=== PATIENT | male | born 1945 | race Caucasian/White ===

== ENCOUNTER → 2021-12-07 09:40 | Outpatient (BNVA) | payer MEDICARE, OTHER, SELFPAY | PROVIDERS: Referring Provider Family Medicine; Visit Provider Orthopaedic Surgery | DX: M17.0 Bilateral primary osteoarthritis of knee (principal); M25.569 Pain in unspecified knee | CPT/HCPCS: 20610; 73560; 73565; 99203; J0702; J3490 ==

== ENCOUNTER 2025-01-12 05:28 | Emergency (ER) | payer MEDICARE, OTHER, SELFPAY ==
[2025-01-12 05:34] VITALS: BP 146/66; PULSE 51; RESP 18; TEMP 36.6; O2SAT 96; BMI 26.2
[2025-01-12 05:49] LABS: Basophils % 0.7 %; Eosinophils # 0.2 10^3/uL (0.0-0.8); Hematocrit 32.6 % (37-53); Lymphocytes # 1.5 10^3/uL (0.8-4.8); Lymphocytes % 34.9 %; Mean Corpuscular HGB Conc 32.5 g/dL (30-55); Mean Corpuscular Hemoglobin 31.3 pg (27-33); Mean Corpuscular Volume 96.2 fl (82-101); Mean Platelet Volume 10.1 fL (7.4-10.4); Monocytes # 0.4 10^3/uL (0.2-0.9); Monocytes % 9.9 %; Neutrophils # 2.08 10^3/uL (1.8-7.7); Nucleated Red Blood Cells % 0 %; Platelet Count 149 10^3/cmm (157-399); Red Blood Count 3.39 10^6/uL (3.85-5.65); Red Cell Distribution Width 12.4 % (12.1-15.1); White Blood Count 4.24 10^3/uL (3.29-11.43)
--- NOTE | 2025-01-12 05:56 | USR_ITS ---
PROCEDURE INFORMATION: Exam: US Duplex Left Lower Extremity Veins, Limited Exam date and time: 01/12/2025 6:13 AM Age: 79 years old Clinical indication: Swelling (edema) of limb; Lower extremity, left; Prior surgery; Surgery date: 1-6 months; Surgery type: Left knee replacement Dec 10 2024; Additional info: Leg swelling TECHNIQUE: Imaging protocol: Real-time duplex ultrasound of the left extremity with 2-D padron scale, color Doppler flow and spectral waveform analysis including responses to compression and other maneuvers (when performed) with image documentation. Limited exam focused on the left lower extremity veins. COMPARISON: CR XR knees AP WB w BI lmt ORTH 12/07/2021 10:28 AM FINDINGS: Left deep veins: Unremarkable. The common femoral, femoral, proximal profunda femoral and popliteal veins are patent without thrombus. Normal Doppler waveforms. Normal compressibility and/or augmentation response. Superficial veins: Greater saphenous vein at the saphenofemoral junction is patent without thrombus. Soft tissues: Unremarkable. US/CV venous duplex [facility] [id number] IMPRESSION: No evidence of deep vein thrombosis left lower extremity.
--- NOTE | 2025-01-12 06:14 | ED_ITS ---
HPI - Extremity Problem 2 General: Chief complaint: Extremity Problem,Nontraumatic Stated complaint: LEG PAIN Time Seen by Provider: 01/12/25 05:49 Source: patient Mode of arrival: ambulatory Limitations: no limitations History of Present Illness: 79-year-old male is here from [facility]. He had had a recent total knee replacement to the left knee. States since then he has been having pain throughout his leg along with some leg swelling. States the pains been burning pains rated a 6 out of 10 currently denies any fevers denies any new injuries. Associated symptoms: Deny chest pain, fever(s) or rash Related Data Home Medications ?Medication ?Instructions ?Recorded ?Confirmed No Known Home Medications 12/07/21 05/0 10/26 Allergies Allergy/AdvReac Type Severity Reaction Status Date / Time No Known Allergies Allergy Verified 12/07/21 10:19 Review of Systems 2 Const: Denies: fever(s), chills, body aches or change in appetite ENMT: Denies: throat pain or dental pain Card: Denies: chest pain Resp: Denies: dyspnea GI: Denies: abdominal pain, nausea, vomiting or diarrhea Musc: Reports: extremity pain and extremity swelling; Denies: neck pain or back pain Skin/Breast: Denies: rash Neuro: Denies: headache(s) PFSH ED 2 PFSH: Social History Smoking and tobacco/nicotine status: never used tobacco/nicotine Physical Exam 2 Const: COMMON NORMALS: no acute distress, patient oriented x3 and healthy appearing HENMT: COMMON NORMALS: normocephalic and atraumatic HEAD & SCALP: n ormocephalic and atraumatic Eye: COMMON NORMALS: conjunctivae normal CONJUNCTIVA: Yes conjunctivae normal Neck/C-Spine: COMMON NORMALS: full ROM and supple Chest: COMMONS NORMALS: normal inspection of the chest Resp: COMMON NORMALS: normal respiratory effort, No retractions, No use of accessory muscles and clear to auscultation bilaterally AUSCULTATION: clear to auscultation bilaterally Cardio: COMMON NORMALS: regular rate, regular rhythm and No murmurs present (Cardio) RATE: regular rate RHYTHM: regular rhythm Extremity: NARRATIVE EXTREMITY EXAM: Swelling noted to left lower leg no redness incisions clean dry intact distal pulses intact Neuro: COMMON NORMALS: patient oriented x3, moves all extremities and no focal motor deficits Psych: COMMON NORMALS: mental status grossly normal, Normal thought process present and cooperative THOUGHT PROCESS: Normal thought process present Skin: COMMON NORMALS: no rashes or lesions noted and no wounds GENERAL SKIN EXAM: no rashes or lesions noted Course 2 Vital Signs: Vital signs: Vital Signs Temperature 97.8 F 01/12/25 05:34 Pulse Rate 52 L 01/12/25 06:17 Respiratory Rate 16 01/12/25 06:17 Blood Pressure 146/66 01/12/25 06:17 Pulse Oximetry 94 01/12/25 06:17 Oxygen Delivery Me thod Nasal Cannula 01/12/25 06:17 Oxygen Flow Rate 2 01/12/25 06:17 MDM - Extremity (Nontraumatic) Medical Decision Making Patient presents for left leg pain blood work ultrasound here negative no signs of infection no DVT he stable for discharge back to [facility] Medical Records I reviewed the patient's medical records. Lab Data I reviewed the patient's lab results. 01/12/25 05:20 01/12/25 05:20 Radiology Impressions Venous Duplex 01/12/25 05:56 IMPRESSION: No evidence of deep vein thrombosis left lower extremity. Laboratory Results WBC 4.24 10^3/uL (3.29-11.43) 01/12/25 05:20 RBC 3.39 10^6/uL (3.85-5.65) L 01/12/25 05:20 Hgb 10.60 g/dL (11.27-16.99) L 01/12/25 05:20 Hct 32.6 % (37-53) L 01/12/25 05:20 MCV 96.2 fl (82-101) 01/12/25 05:20 MCH 31.3 pg (27-33) 01/12/25 05:20 MCHC 32.5 g/dL (30-55) 01/12/25 05:20 RDW 12.4 % (12.1-15.1) 01/12/25 05:20 Plt Count 149 10^3/cmm (157-399) L 01/12/25 05:20 MPV 10.1 fL (7.4-10.4) 01/12/25 05:20 Neut % (Auto) 49.0 % 01/12/25 05:20 Lymph % (Auto) 34.9 % 01/12/25 05:20 Mckenzie % (Auto) 9.9 % 01/12/25 05:20 Eos % (Auto) 5.0 % 01/12/25 05:20 Baso % (Auto) 0.7 % 01/12/25 05:20 Neut # (Auto) 2.08 10^3/uL (1.8-7.7) 01/12/25 05:20 Lymph # (Auto) 1.5 10^3/uL (0.8-4.8) 01/12/25 05:20 Mckenzie # (Auto) 0.4 10^3/uL (0.2-0.9) 01/12/25 05:20 Eos # (Auto) 0.2 10^3/uL (0.0-0.8) 01/12/25 05:20 Baso # (Auto) 0.0 10^3/uL (0.0-0.1) 01/12/25 05:20 Nucleated RBC % (auto) 0 % 01/12/25 05:20 Nucleated RBCs # 0.0 /100WBC 01/12/25 05:20 Sodium 141 mmol/L (136-145) 01/12/25 05:20 Potassium 3.9 mmol/L (3.5-5.1) 01/12/25 05:20 Chloride 105 mmol/L (98-107) 01/12/25 05:20 Carbon Dioxide 27 mmol/L (22-29) 01/12/25 05:20 Anion Gap 12.9 (5-19) 01/12/25 05:20 BUN 15 mg/dL (8-23) 01/12/25 05:20 Creatinine 0.7 mg/dL (0.7-1.2) 01/12/25 05:20 GFR Calculation Not Reportable 01/12/25 05:20 Glucose 117 mg/dL (65-115) H 01/12/25 05:20 Calculated Osmolality 294 mOsm/kg (285-295) 01/12/25 05:20 Calcium 8.9 mg/dL (8.5-10.5) 01/12/25 05:20 Total Bilirubin 0.7 mg/dL (0.15-1.2) 01/12/25 05:20 AST 17 U/L (0-40) 01/12/25 05:20 ALT < 5 U/L (0-41) 01/12/25 05:20 Alkaline Phosphatase 122 U/L (40-130) 01/12/25 05:20 NT-Pro-B Natriuret Pep 381 pg/mL (0-450) 01/12/25 05:20 Total Protein 5.7 g/dL (6.6-8.7) L 01/12/25 05:20 Albumin 3.5 g/dL (3.5-5.2) 01/12/25 05:20 Globulin 2.2 g/dL (1.3-4.6) 01/12/25 05:20 All radiology interpretation(s) finalized by discharge Discharge Plan Discharge Patient Disposition: Home Clinical Impression: Leg pain, left Condition: Stable Prescriptions: No Action Gel-One 30 mg/3 mL syringe 30 mg intra-articular ONCE Qty: 3 0RF No Known Home Medications Discharge Orders: Discharge ED (Routine); Ordered 01/12/25 Ordered By: Hi Atwood Referrals: Benja David MD [Primary Care Provider] Discharge Diet: Advance as tolerated Discharge Activity: Resume usual activity Patient Instructions: Leg Pain (ED) Print Language: Ukrainian Coding Level of Care Code ED Search Engine Optimization Consultant for Carolin Zelaya
[2025-01-12 06:17] VITALS: BP 146/66; PULSE 52; RESP 16; O2SAT 94
[2025-01-12 06:26] LABS: Alanine Aminotransferase < 5 U/L (0-41); Albumin Level 3.5 g/dL (3.5-5.2); Alkaline Phosphatase 122 U/L (40-130); Anion Gap 12.9 (5-19); Aspartate Amino Transferase 17 U/L (0-40); Blood Urea Nitrogen 15 mg/dL (8-23); Calcium 8.9 mg/dL (8.5-10.5); Carbon Dioxide 27 mmol/L (22-29); Chloride 105 mmol/L (98-107); Creatinine Clr Calc Pharmacy 92.9281; Globulin 2.2 g/dL (1.3-4.6); Glucose 117 mg/dL (65-115); NT Pro B Type Natriuretic Pept 381 pg/mL (0-450); Osmolality Calculated 294 mOsm/kg (285-295); Potassium 3.9 mmol/L (3.5-5.1); Sodium 141 mmol/L (136-145); Total Bilirubin 0.7 mg/dL (0.15-1.2); Total Protein 5.7 g/dL (6.6-8.7)
--- NOTE | 2025-01-12 07:32 | PC.NURSE ---
PT FAMILY AT BEDSIDE AND INFORMED PT WAS UP FOR DISCHARGE. PT FAMILY STATES THAT PT WILL NEED AN AMBULANCE RIDE BACK HOME. THIS NURSE ATTEMPTED TO CALL REPORT TO [facility] WITH NO ANSWER.
[2025-01-12 08:15] VITALS: BP 150/73; PULSE 65; O2SAT 98
== END 2025-01-12 08:15 | disposition home or self-care (01) ==
PROVIDERS: Student in an Organized Health Care Education/Training Program; Emergency Provider Emergency Medicine; PCP Family Medicine
DX: M79.605 Pain in left leg (principal); Z96.652 Presence of left artificial knee joint
CPT/HCPCS: 80053; 83880; 85025; 93971; 99284

== ENCOUNTER 2025-04-26 09:23 | Emergency (ER) | payer MEDICARE, OTHER, SELFPAY ==
--- NOTE | 2025-04-26 09:26 | CTR_ITS ---
PROCEDURE INFORMATION: Exam: CT Abdomen And Pelvis With Contrast Exam date and time: 04/26/2025 9:38 AM Age: 79 years old Clinical indication: Abdominal pain; Localized; Upper; Additional info: Abd pain TECHNIQUE: Imaging protocol: Computed tomography of the abdomen and pelvis with contrast. Total images: 2 Radiation optimization: All CT scans at this facility use at least one of these dose optimization techniques: automated exposure control; mA and/or kV adjustment per patient size (includes targeted exams where dose is matched to clinical indication); or iterative reconstruction. Contrast material: OMNI 350; Contrast volume: 100 ml; Contrast route: INTRAVENOUS (IV); COMPARISON: No relevant prior studies available. RADIATION DOSE METRICS: Total DLP (mGy-cm): 1068.06 FINDINGS: Lungs: Compressive atelectasis of the lungs. Pleural spaces: Small bilateral pleural effusions are present. Liver: Normal. No mass. Gallbladder and biliary ducts: Prior cholecystectomy noted. Pancreas: Normal. No ductal dilation. Spleen: Normal. No splenomegaly. Adrenal glands: Normal. No mass. Kidneys and ureters: 11.6 cm largest cyst noted in kidneys that have multiple simple renal cysts. No further evaluation required. Stomach and bowel: Moderate stool burden. Appendix: No evidence of appendicitis. Intraperitoneal space: Unremarkable. No free air. No significant fluid collection. Vasculature: Incidental venous phlebolith noted. Lymph nodes: Unremarkable. No enlarged lymph nodes. Urinary bladder: Unremarkable as visualized. Reproductive: Prostatomegaly noted. Extraperitoneal space: Mild edema seen in lower mesentery and presacral space nonspecific. Bones/joints: Multilevel degenerative disc disease is noted with vacuum phenomenon. Osteophytes are noted extending from the vertebrae. No acute spinal pathology is detected. Soft tissues: Unremarkable. Other findings: Mild atherosclerotic disease burden is evident. CT/CT abdomen pelvis w con* [id number] IMPRESSION: 1. Small bilateral pleural effusions with compressive atelectasis. 2. Moderate stool burden. 3. Mild edema seen in lower mesentery and presacral space nonspecific. COMMENTS: Consistent with the [employer]'s Incidental Findings Committee white paper (J Am Sabrina Radiol 2018): Any incidental renal lesion less than 1 cm or classified as too small to characterize, or any incidental cystic renal lesion characterized as simple-appearing, is likely benign. No follow-up imaging is recommended for these lesions per consensus recommendations based on imaging criteria.
[2025-04-26 09:28] VITALS: BP 173/82; PULSE 79; RESP 18; TEMP 36.6; O2SAT 92; BMI 27.2
--- OUTSIDE RECORDS SUMMARY | 2025-04-26 09:28 | XMS_ITS | Encounter Summary ---
Author Organization [facility] Address [address] [place] [address] Care Team Providers Care Chief Fundraising Officer Name Role Phone Humza Arana MD Primary Care Provider [phone] Encounter Details Date Type Department Care Team (Latest Contact Info) Description 12/30/2009 Ancillary Orders [facility] Cardiology- [place] [address] [place] [address] Corky Andrea MD [address] [facility] [address] [place] [address] DM (Diabetes Mellitus) ([facility]); Abnormal Cardiovascular Stress Test Social History Tobacco Use Types Packs/Day Years Used Date Smoking Tobacco: Never Alcohol Use Standard Drinks/Week Comments No 0 (1 standard drink = 0.6 oz pur e alcohol) Sex and Gender Information Value Date Recorded Sex Assigned at Not on file Legal Sex Male 5:31 AM DIRECTOR OF TAX SERVICES Gender Identity Not on file Sexual Orientation Not on file documented as of this encounter Plan of Treatment Not on file documented as of this encounter Results * ECHO PRE TEST (12/30/2009 1:40 PM CDT) Narrative [facility] - 12/30/2009 1:40 PM CDT Order information only. See the Stress Echo Report for result. Procedure Note Rossi Edge, RT - 12/30/2009 Order information only. See the Stress Echo Report for result. us Corky Andrea MD US ORDERABLES Final Result [facility] documented in this encounter Visit Diagnoses Diagnosis DM (diabetes mellitus) (CMS/[facility]) Type II or unspecified type diabetes mellitus without mention of complication, not stated as uncontrolled Abnormal cardiovascular stress test Other nonspecific abnormal cardiovascular system function study DM (diabetes mellitus) (CMS/HCC) Type II or unspecified type diabetes mellitus without mention of complication, not stated as uncontrolled Abnormal cardiovascular stress test Other nonspecific abnormal cardiovascular system function study documented in this encounter Care Teams Chief Fundraising Officer Relationship Specialty Start Date End Date Humza Arana MD [address] [place] [address] [address] [place] [address] PCP - General Family Practice 08/06/15 documented as of this encounter
--- OUTSIDE RECORDS SUMMARY | 2025-04-26 09:28 | XMS_ITS | Encounter Summary ---
Author Organization [facility] Address [address] [place] [address] Care Team Providers Care Pharmacy Sales Representative Name Role Phone Humza Arana MD Primary Care Provider [phone] Reason for Referral * Outpatient Services (Routine) - Closed Specialty Diagnoses / Procedures Referred By Contlelo t Referred To Contact Diagnoses Renal cyst Procedures US GUIDED ASPIRATION Rhaul Carter MD [address] [place] [phone] Phone: tel: fax: Referral ID Status Reason Start Date Expiration Date Visits Re quested Visits Authorized [id number] Closed 07/22/2011 07/21/2012 1 1 FORESTER Encounter Details Date Type Department Care Team (Late st Contact Info) Description 07/22/2011 Ancillary Orders [facility] Ultrasound [address] [place] [address] Rahul Carter MD [address] [place] [phone] Renal cyst Social History Tobacco Use Types Packs/Day Years Used Date Smoking Tobacco: Never Smokeless Tobacco: Never Alcohol Use Standard Drinks/Week Comments No 0 (1 standard drink = 0.6 oz pur e alcohol) Sex and Gender Information Value Date Recorded Sex Assigned at Not on file Legal Sex Male 5:31 AM AREA FORESTER Gender Identity Not on file Sexual Orientation Not on file documented as of this encounter Plan of Treatment Not on file documented as of this encounter Results * US GUIDED ASPIRATION (07/27/2011 10:26 AM AREA FORESTER) Anatomical Region Laterality Modality Ultrasound 07/27/2011 10:0 7 AM AREA FORESTER Narrative 07/27/2011 10:49 AM AREA FORESTER US GUIDED ASPIRATION . DATE: Jul 27, 2011 10:07:00 AM . . INDICATION: Left flank pain, possibly related to the large left renal cyst. . COMPARISON: CT dated 06/14/2011. Moderate (conscious) sedation for this procedure was performed with continuous physician supervision. Medical history, physical exam, drug dosages, routes of drug administration, monitoring data, and precise times of service are documented in the medical record on the [facility]-approved form, 'Sedative/Analgesic Administration for Diagnostic and Therapeutic Procedures'. Please see nursing flow sheets for dosage and time. . WIRE WRAPPING MACHINE OPERATOR: Chai Espinoza MD . PROCEDURE: Informed written consent was obtained with specific understanding of the risks of the procedure including bleeding, infection, and injury to adjacent structures. The patient was taken to the ultrasound suite where his left flank was prepped and draped in normal sterile fashion. A timeout procedure was performed. Intravenous sedation was administered in divided doses. Ultrasound was used to visualize the large left renal cyst and an appropriate tract for aspiration. The skin and soft tissues were anesthetized with 1% local lidocaine. A 5 Dominican Yueh needle was then advanced into the cyst under direct ultrasound guidance. Approximately 600 mL of straw-colored fluid was aspirated. Followup imaging demonstrates near complete resolution of the cyst. A sterile dressing was placed. The patient tolerated the procedure well per . COMPLICATIONS: None. . CONCLUSION Successful ultrasound-guided left renal cyst aspiration with removal of approximately 600 mL of straw-colored fluid. . Procedure Note Chai Espinoza MD - 07/27/2011 US GUIDED ASPIRATION . DATE: Jul 27, 2011 10:07:00 AM . . INDICATION: Left flank pain, possibly related to the large left renal cyst. . COMPARISON: CT dated 06/14/2011. Moderate (conscious) sedation for this procedure was performed with continuous physician supervision. Medical history, physical exam, drug dosages, routes of drug administration, monitoring data, and precise times of service are documented in the medical record on the [facility]-approved form, 'Sedative/Analgesic Administration for Diagnostic and Therapeutic Procedures'. Please see nursing flow sheets for dosage and time. . WIRE WRAPPING MACHINE OPERATOR: Chai Espinoza MD . PROCEDURE: Informed written consent was obtained with specific understanding of the risks of the procedure including bleeding, infection, and injury to adjacent structures. The patient was taken to the ultrasound suite where his left flank was prepped and draped in normal sterile fashion. A timeout procedure was performed. Intravenous sedation was administered in divided doses. Ultrasound was used to visualize the large left renal cyst and an appropriate tract for aspiration. The skin and soft tissues were anesthetized with 1% local lidocaine. A 5 Dominican Yueh needle was then advanced into the cyst under direct ultrasound guidance. Approximately 600 mL of straw-colored fluid was aspirated. Followup imaging demonstrates near complete resolution of the cyst. A sterile dressing was placed. The patient tolerated the procedure well per . COMPLICATIONS: None. . CONCLUSION Successful ultrasound-guided left renal cyst aspiration with removal of approximately 600 mL of straw-colored fluid. . us Rahul Carter MD US ORDERABLES Final Result documented in this encounter Visit Diagnoses Diagnosis Renal cyst Unspecified congenital cystic kidney disease Renal cyst Unspecified congenital cystic kidney disease documented in this encounter Care Teams Pharmacy Sales Representative Relationship Specialty Start Date End Date Humza Arana MD [address] [place] [address] [place] [id number] PCP - General Family Practice 08/06/15 documented as of this encounter
--- OUTSIDE RECORDS SUMMARY | 2025-04-26 09:28 | XMS_ITS | Clinical Summary ---
Author Organization [facility] tone Address [address] [place] [address] Care Team Providers Care Slot Floor Attendant Name Role Phone Humza Arana MD Primary Care Provider Allergies Active Allergy Reactions Criticality Noted Date Comments Amantadine Rash Low 11/19/2019 Medications aspirin (MALLORY CHEWABLE) 81 mg Oral Chew Take 81 mg by mouth daily. Active MAGNESIUM OXIDE (MAG-OXIDE ORAL) Take by mouth 2 times daily. Active fluticasone (FLONASE) 50 mcg/spray [place], Suspension Administer 2 Sprays in each nostril daily. 16 Gram 3 4 Active lysine 500 mg tablet Take 500 mg by mouth daily with lunch. Active ASCENSIA CONTOUR Strip USE TO TEST BLOOD SUGAR LEVELS TWICE DAILY DX:250.00 100 Each 3 5 Active carvedilol (COREG) 6.25 mg tablet TAKE ONE TABLET BY MOUTH TWICE DAILY WITH MEALS 60 Tab 6 5 Active KLOR-CON M20 20 mEq Extended Release tablet TAKE ONE TABLET BY MOUTH ONCE DAILY 30 Tab 6 5 Active lisinopril (PRINIVIL) 40 mg tablet TAKE ONE TABLET BY MOUTH TWICE DAILY. 60 Tab 11 5 Active amLODIPine (NORVASC) 5 mg tablet TAKE ONE TABLET BY MOUTH ONCE DAILY. 30 Tablet 6 5 Active hydrochlorothiaz kole 25 mg tablet TAKE ONE TABLET BY MOUTH EVERY DAY. 90 Tablet 0 5 Active terazosin (HYTRIN) 10 mg capsule TAKE ONE CAPSULE BY MOUTH TWICE DAILY. 60 Capsule 1 5 Active glimepiride (AMARYL) 4 mg tablet TAKE ONE TABLET BY MOUTH ONCE DAILY IN THE MORNING AND ONE-HALF ONCE DAILY IN THE EVENING. 60 Tablet 0 6 Active meloxicam (MOBIC) 15 mg tablet Take 15 mg by mouth daily Take 0.5 tab daily.. 6 Active metFORMIN (GLUCOPHAGE) 500 mg tablet 500 mg Twice daily.. 6 Active carbidopa-levodo pa (SINEMET) 25-100 mg tablet Take 2 Tablets by mouth 3 times daily. 540 Tablet 3 0 Active finasteride (PROSCAR) 5 mg tabletIndication s:Benign prostatic hyperplasia with lower urinary tract symptoms, symptom details unspecified Take 1 tablet by mouth once daily 90 Tablet 1 Active Hospital, Clinic, or Other Facility Administered Medication Ordered Dose Route Frequency Start Date End Date Status methylPREDNISolone Acetate (DEPO-MEDROL) 40 mg/mL injection 80 mgIndications:Back pain 80 mg IM ONE TIME ONLY 04/09/2014 Active Active Problems Problem Noted Date Diagnosed Date Parkinson disease 05/16/2016 Epigastric pain 07/22/2014 History of basal cell carcinoma 07/15/2014 Left shoulder pain 12/17/2013 Tear of left rotator cuff 12/17/2013 Special screening for malignant neoplasms, colon 07/17/2012 Elevated prostate specific antigen (PSA) 012 Diverticulosis 06/16/2011 Renal cyst 06/16/2011 HTN (hypertension) 06/23/2009 DM (diabetes mellitus) 01/07/2009 Immunizations Immunization Administration Dates Next Due (PNEUMOVAX 23)(50 YRS UP) PN EUMOCOCCAL POLYSACCHARIDE (PPV23) 0.5 ML, IM 06/25/2013 Influenza Vaccine Split 3+ Yrs IM 06/25/2013,09/2009,08/10/2009 Influenza Vaccine Split 3+ Yrs PF IM 07/16/2012 Family History Medical History Relation Name Comments Colon Cancer Neg Hx Social History Tobacco Use Types Packs/Day Years Used Date Smoking Tobacco: Never Smokeless Tobacco: Never Tobacco Cessation:Counseling Given: No Alcohol Use Standard Drinks/Week Comments No 0 (1 standard drink = 0.6 oz pur e alcohol) Sex and Gender Information Value Date Recorded Sex Assigned at Not on file 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 Gender Identity Not on file Sexual Orientation Not on file Occupation Industry Job Start Date Job End Date Not on file Not on file Not on file Not on file Not on file Not on file Not on file Not on file Last Filed Vital Signs Vital Sign Reading Time Taken Comments Blood Pressure 148/88 05/21/2019 1:08 PM CDT Pulse 66 05/21/2019 1:08 PM CDT Temperature 36.2 C (97.2 F) 03/23/2017 9:47 AM CDT Respiratory Rate 18 03/23/2017 10:59 AM CDT Oxygen Saturation 95% 03/23/2017 10:59 AM CDT Inhaled Oxygen Concentration - - Weight 108.9 kg (240 lb) 05/21/2019 1:08 PM CDT Height 188 cm (6' 2 ) 05/21/2019 1:08 PM CDT Body Mass Index 30.81 05/21/2019 1:08 PM CDT Plan of Treatment Health Maintenance Due Date Last Done Comments DIABETES ANNUAL FOOT EXAM 1964 DTAP/TDAP/TD VACCINES (1 - Tdap) 1965 ZOSTER VACCINE (1 of 2) 1996 DIABETES MICROALBUMIN ANNUAL SCREEN 05/04/2010 05/04/2009 PNEUMOCOCCAL VACCINE 50+ YEA RS (2 of 2 - PCV) 06/25/2014 06/25/2013 LDL CHOLESTEROL ANNUAL 05/15/2015 4, 07/22/2013, 01/18/2012, Additional history exists DIABETES ANNUAL RETINAL EXAM 08/05/2020, 05/30/2018, 02/23/2017, Additional history exists DIABETES HBA1C Q 6 MONTHS 11/10/20202019, 01/21/2020, 07/18/2019, Additional history exists RSV VACCINE (60+ or ) (1 - 1-dose 75+ series) 2021 INFLUENZA VACCINE (#1) 2025 3, 07/16/2012, 07/08/2010, Additional history exists COLORECTAL SCREENING Discontinued 07/18/2012, 07/17/20 12 Colorectal Cancer Screening Discontinued FIT-DNA Q 3 years Discontinued FIT/FOBT Q 1 year Discontinued Flex Sig/CT Colonography Q 5 years Discontinued Medical Devices Implanted Type Area Cardiologist Device Identifier Shelf Expiration Date Model / Serial / Lot Firth Sut Tigre Biocmpst 5.5mm [id number] - [id number] Implanted:Qty: 1 on 08/15/2014 at [facility] Firth Left: Shoulder [employer] 04/06/2016 [id number] / / [id number] Procedures Procedure Name Priority Date/Time Associated Diagnosis Comments HEMOGLOBIN A1C Routine 04/28/2016 LIPID PANEL Routine 05/15/2014 9:05 AM CDT DM (diabetes mellitus) ([facility]/HCC) HTN (hypertension) HM DIABETES EYE EXAM Routine 09/12/2013 ENDOSCOPY, COLON, SCREENING Routine 07/18/2012 8:26 AM SQUARE DANCE CALLER Screen for colon cancer MICROALBUMIN, RANDOM URINE Routine 05/04/2009 11:28 AM CDT DM (Diabetes Mellitus) (CMS/HCC) from Last 3 Months or Most Recently Relevant to Health Maintenance Results * HEMOGLOBIN A1C (04/28/2016) ABSTRACTED HGB A1C 5.5 EXTERNAL LAB HEMOGLOBIN A1C 5.5 4.7 - 6.4 % EXTERNAL LAB HEMOGLOBIN A1C EXTERNAL LAB GLUCOSE, MEAN BLOOD EXTERNAL LAB Blood 04/28/2016 us Abstract Spg Provider CHEMISTRY ORDERABLES Final Result EXTERNAL LAB * (ABNORMAL) LIPID PANEL (05/15/2014 9:05 AM CDT) CHOLESTEROL 140 100 - 200 MG/DL [facility] TRIGLYCERIDE 85 0 - 150 MG/DL [facility] HDL 41 40 - 60 MG/DL [facility] LDL CALCULATED 82 58 - 100 MG/DL [facility] Comment: CALCULATED LDL REFERENCE: < 100 Optimal 100 - 129 Near Optimal 130 - 159 Borderline High > 160 High Risk CHOL/HDL RATIO 3.41(L) 3.43 - 4.97 RATIO [facility] Blood specimen (specimen) 05/15/2014 9:05 AM CDT 05/15/2014 9:06 AM CDT Antonio Vu MD CHEMISTRY ORDERABLES Final R esult INTERFACE SYSTEM Refer to clinic/hospital department [facility] CLIA# [id number] [address] [place] [address] * DIABETES EYE EXAM (09/12/2013) us Abstract Spg Provider HEALTH MAINTENANCE Final R esult * ENDOSCOPY, COLON, SCREENING (07/18/2012 8:26 AM SQUARE DANCE CALLER) Narrative Transcriptions Kolton Tirado MD - 07/18/2012 8:03 AM CST [facility] END[facility]COPY [place], [place] NAME JOHN [facility] # [id number] 1945 AGE 67Y PHYSICIAN Kolton Tirado MD DATE: 07/17/2012 REFERRING PHYSICIAN: Antonio Vu MD PROCEDURE: Colonoscopy. INDICATION: Screening for colorectal neoplasm. MEDICATIONS: Versed 4 mg IV and fentanyl 100 mcg IV in titrated doses. DESCRIPTION OF PROCEDURE: After reviewing the risks, benefits, andalternatives of the procedure with the patient, he signed a consent form.He was placed in the left lateral decubitus position and IV conscioussedation was administered, while monitoring blood pressure, pulse oximetryand EKG. The colonoscope was introduced through the rectum and underdirect visualization was advanced to the terminal ileum. Carefulinspection of the mucosa was made as the colonoscope was withdrawn. Thequality of the preparation was mildly poor. The patient tolerated theprocedure well and there were no immediate complications. FINDINGS: Retroflex examination in the rectum revealed small internalhemorrhoids. Mild sigmoid diverticulosis. The rest of the visualizedcolonic mucosa was normal without masses, polyps, diverticula, orinflammation. The terminal ileum was normal. IMPRESSION: Internal hemorrhoids. Diverticulosis. RECOMMENDATIONS: Screening colonoscopy in 10 years. Kolton Tirado MD med D: [id number] V: [id number] cc:Antonio Vu MD Basil Alatorre DO GI PROCEDURE ORDERABLES Final Result * MICROALBUMIN, RANDOM URINE (05/04/2009 11:28 AM CDT) MICROALBUMIN, URINE <20 <20 MG/L [facility] Urine specimen (specimen) 05/04/2009 11:28 AM CDT 05/04/2009 11:29 AM CDT Antonio Vu MD URINE ORDERABLES Final Resul t INTERFACE SYSTEM Refer to clinic/hospital department [facility] CLIA# [id number] [address] [place] [address] from Last 3 Months or Most Recently Relevant to Health Maintenance Insurance MEDICARE PART A AND B [facility] MEDICARE [facility] Advance Directives For more information, please contact: [phone] * Full Code (Latest Code Status on File) Date Activated Date Inactivated Comments 03/23/2017 10:51 AM 03/23/2017 1:39 PM * Full Code Date Activated Date Inactivated Comments 03/23/2017 10:34 AM 03/23/2017 10:51 AM * Full Code Date Activated Date Inactivated Comments 07/22/2014 3:49 PM 07/22/2014 6:25 PM * Full Code Date Activated Date Inactivated Comments 07/22/2014 2:55 PM 07/22/2014 3:49 PM * Full Code Date Activated Date Inactivated Comments 07/17/2012 3:03 PM 07/17/2012 5:43 PM Care Teams Slot Floor Attendant Relationship Specialty Start Date End Date Humza Arana MD [address] [place] [address] [address] [place] [address] PCP - General Family Practice 08/06/15
--- OUTSIDE RECORDS SUMMARY | 2025-04-26 09:28 | XMS_ITS | Encounter Summary ---
Author Organization [facility] Address [address] [place] [address] Care Team Providers Care Emblem Fuser Tender Name Role Phone Humza Arana MD Primary Care Provider [phone] Reason for Referral * Outpatient Services (Routine) - Closed Specialty Diagnoses / Procedures Referred By Contac t Referred To Contact Diagnoses Lumbar pain Procedures MRI LUMBAR WO CONTRAST Humza Arana MD [address] [facility] [address] [place] [address] Phone: tel: fax: [facility] Pre-Registration [place] CALL TO MAKE APPOINTMENT ONLY [address] [place] [address] Phone: tel: fax: Referral ID Status Reason Start Date Expiration Date V isits Requested Visits Authorized [id number] Closed F [facility] TO SCHEDULE (SGF) 10/23/2015 11/22/2016 1 1 Encounter Details Date Type Department Care Team (Latest Contact Info) Description 10/23/2015 Ancillary Orders [facility] Pre-Registration [place] CALL TO MAKE APPOINTMENT ONLY [address] [place] [address] Humza Arana MD [address] [address] Lumbar pain (Primary Dx) Social History Tobacco Use Types Packs/Day Years Used Date Smoking Tobacco: Never Smokeless Tobacco: Never Alcohol Use Standard Drinks/Week Comments No 0 (1 standard drink = 0.6 oz pur e alcohol) Sex and Gender Information Value Date Recorded Sex Assigned at Not on file 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 There are no areas of significant spinal stenosis. There is mild bilateral foraminal narrowing at L4-5 and L5-S1. No apparent nerve impingement. See findings above for further details. [id number] Narrative 10/29/2015 1:02 PM CDT Exam: MRI LUMBAR WO CONTRAST Date/Time of Exam: 10/29/2015 10:56 AM Reason For Exam: Lumbar pain. Technique: MRI of the lumbar spine was performed without the administration of intravenous contrast. Findings: There is slight retrolisthesis at L2-3, L3-4, and L4-5. There is no compression fracture. No evidence of bone marrow edema. There are subcortical fatty marrow changes at multiple levels, most pronounced at L4-5. The conus terminates at the L1-2 level and is unremarkable. L1-2: Slight disc bulge, otherwise unremarkable. L2-3: Mild disc bulge, otherwise unremarkable. L3-4: Mild disc bulge and endplate ridging, otherwise unremarkable. L4-5: Disc height loss, disc bulge, endplate degeneration, and facet joint arthropathy. Findings result in mild bilateral foraminal narrowing. L5-S1: Disc height loss, disc bulge, endplate ridging, and facet joint arthropathy. Findings result in mild bilateral foraminal narrowing. There is a partially visualized cyst within the left kidney. The visualized paraspinous soft tissues are otherwise unremarkable. Procedure Note Fran Ramos MD - 10/29/2015 Exam: MRI LUMBAR WO CONTRAST Date/Time of Exam: 10/29/2015 10:56 AM Reason For Exam: Lumbar pain. Technique: MRI of the lumbar spine was performed without the administration of intravenous contrast. Findings: There is slight retrolisthesis at L2-3, L3-4, and L4-5. There is no compression fracture. No evidence of bone marrow edema. There are subcortical fatty marrow changes at multiple levels, most pronounced at L4-5. The conus terminates at the L1-2 level and is unremarkable. L1-2: Slight disc bulge, otherwise unremarkable. L2-3: Mild disc bulge, otherwise unremarkable. L3-4: Mild disc bulge and endplate ridging, otherwise unremarkable. L4-5: Disc height loss, disc bulge, endplate degeneration, and facet joint arthropathy. Findings result in mild bilateral foraminal narrowing. L5-S1: Disc height loss, disc bulge, endplate ridging, and facet joint arthropathy. Findings result in mild bilateral foraminal narrowing. There is a partially visualized cyst within the left kidney. The visualized paraspinous soft tissues are otherwise unremarkable. IMPRESSION IMPRESSION: Degenerative findings as described. There are no areas of significant spinal stenosis. There is mild bilateral foraminal narrowing at L4-5 and L5-S1. No apparent nerve impingement. See findings above for further details. [id number] us Humza Arana MD MR ORDERABLES Final Resul t documented in this encounter Visit Diagnoses Diagnosis Lumbar pain- Primary Lumbago Lumbar pain Lumbago documented in this encounter Care Teams Emblem Fuser Tender Relationship Specialty Start Date End Date Humza Arana MD [address] [place] [address] [address] [place] [address] PCP - General Family Practice 08/06/15 documented as of this encounter
--- OUTSIDE RECORDS SUMMARY | 2025-04-26 09:28 | XMS_ITS | Encounter Summary ---
Author Organization [facility] Address [address] [place] [address] Care Team Providers Care Slag Motor Operator Name Role Phone Benja David MD Primary Care Provider [phone] Reason for Visit * Reason Onset Date Comments Blood Pressure Monitoring 04/24/2025 Encounter Details Date Type Department Care Team (Late st Contact Info) Description 04/24/2025 Telephone [facility] [address] [address] Benja David MD [address] [place] [phone] Blood Pressure Monitoring Social History Tobacco Use Types Packs/Day Years Used Date Smoking Tobacco: Never Smokeless Tobacco: Never Alcohol Use Standard Drinks/Week Comments No 0 (1 standard drink = 0.6 oz pur e alcohol) Feeling Safe Answer Date Recorded Are you in a relationship wi th someone who hurts you emotionally and/or physically? 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 No answer. Left voice mail/message to return our call. If patient/caregiver calls back, contact center please obtain a bloodpressure reading. Genia LAIRD documented in this encounter Plan of Treatment Upcoming Encounters Date Type Department Care Team (Late st Contact Info) Description 12/10/2025 10:20 AM CDT Office Visit [facility] Orthopedic [facility] [address] [place] [phone] Kulwinder Leos PA-C [address] [place] [phone] documented as of this encounter Visit Diagnoses Not on filedocumented in this encounter Care Teams Slag Motor Operator Relationship Specialty Start Date End Date Benja David MD [address] [place] [phone] PCP - General Family Practice 08/25/23 documented as of this encounter
--- OUTSIDE RECORDS SUMMARY | 2025-04-26 09:28 | XMS_ITS | Clinical Summary ---
Author Organization [facility] Address [address] 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 Active ALPRAZolam (XANAX) 0.5 mg tabletIndication s:Parkinson's disease with dyskinesia without fluctuating manifestations (CMS/HCC) Take 1 Tablet (0.5 mg) by mouth 3 times daily. 60 Tablet 2 025 Active amLODIPine (NORVASC) 5 mg tabletIndication s:Primary hypertension Take 1 Tablet (5 mg) by mouth daily. 100 Tablet 1 025 Active Additional Information Patient not taking.Reported on 01/27/2025 carbidopa (LODOSYN) 25 mg Tablet Take 1 Tablet (25 mg) by mouth daily. 90 Tablet 1 025 Active carbidopa-levodo pa (SINEMET CR) 50-200 mg Controlled Release tablet Take 1 Tablet by mouth daily at bedtime. 30 Tablet 025 Active carbidopa-levodo pa (SINEMET) 25-100 mg tablet Take 2 Tablets by mouth 4 times daily. 120 Tablet 3 05/22/2 025 Active carvediloL (COREG) 6.25 mg tabletIndication s:Primary hypertension Take 1 Tablet (6.25 mg) by mouth 2 times daily with meals. 180 Tablet 2 Active cholecalciferol, vitamin D3, 1,000 unit Take 1 Tablet (1,000 Units) by mouth daily. 30 Tablet 1 Active Additional Information Patient not taking.Reported on 01/27/2025 cyanocobalamin 1,000 mcg Tablet Take 1 Tablet (1,000 mcg) by mouth daily. 30 Tablet Active diphenhydrAMINE (BENADRYL) 25 mg tablet Take 1 Tablet (25 mg) by mouth every 8 hours as needed for Allergies. 60 Tablet Active Additional Information Patient not taking.Reported on 01/27/2025 docusate sodium (Colace) 100 mg capsule Take 1 Capsule (100 mg) by mouth 2 times daily. 60 Capsule 1 Active famotidine (PEPCID) 20 mg tablet Take 1 Tablet (20 mg) by mouth 2 times daily. 80 Tablet Active Additional Information Patient not taking.Reported on 01/27/2025 fluticasone propionate (FLONASE) 50 mcg/spray Redmon, Suspension nasal inhaler Administer 2 Sprays in each nostril daily. 16 Gram 1 Active magnesium OXIDE (MagOx) 400 mg (241.3 mg magnesium) tablet Take 1 Tablet (400 mg) by mouth 2 times daily. 60 Tablet 1 Active metFORMIN (GLUCOPHAGE) 500 mg tabletIndication s:Type 2 diabetes mellitus without complication, without long-term current use of insulin ([facility]) Take 1 Tablet (500 mg) by mouth 2 times daily with meals. 200 Tablet 3 Active oxyCODONE (ROXICODONE) 5 mg tabletIndication s:Status post total left knee replacement Take 1 Tablet (5 mg) by mouth every 4 hours as needed for Pain. Max Daily Amount: 30 mg 42 Tablet Active rOPINIRole (REQUIP) 1 mg tablet Take 1 Tablet (1 mg) by mouth 3 times daily. 90 Tablet 1 Active tiZANidine (ZANAFLEX) 4 mg Tablet Take 1 Tablet (4 mg) by mouth every 6 hours as needed for Spasm. 30 Tablet 1 Active glimepiride (AMARYL) 2 mg tablet Take 1 Tablet (2 mg) by mouth 3 times daily before meals. 90 Tablet Active Additional Information Patient not taking.Reported on 01/27/2025 Lidocaine 4 % Adhesive Patch, Medicated Apply to right knee. Apply only once for up to 12 hours within a 24 hour period. Patches may be cut into smaller sizes with scissors prior to the removal of the release liner. Clothing may be worn over the area of application. For more information use the [employer]ISTR[employer] link. 30 Patch Active multivitamin with folic acid 400 mcg Tablet tablet Take 1 Tablet by mouth daily. 30 Tablet Active potassium CHLORIDE (K-TAB) 20 mEq Extended Release tablet Take 1 Tablet (20 mEq) by mouth daily with breakfast. 30 Tablet Active psyllium husk-aspartame (METAMUCIL) 3.4 gram Powder in Packet Take 1 Packet (3.4 Grams) by mouth daily. 30 Packet 1 Active naloxone (NARCAN) 4 mg/spray Redmon, Non-Aerosol EMERGENCY USE ONLY: Administer 1 spray (4 mg) in one nostril one time. May repeat in alternating nostrils every 2-3 min until responsive or EMS arrives. 2 Each 3 Active furosemide (LASIX) 40 mg tabletIndication s:Peripheral edema Take 1 Tablet (40 mg) by mouth daily. 90 Tablet 1 025 Active finasteride (PROSCAR) 5 mg tabletIndication s:Benign prostatic hyperplasia with lower urinary tract symptoms, symptom details unspecified Take 1 Tablet (5 mg) by mouth daily. 90 Tablet 025 Active traMADol (ULTRAM) 50 mg tabletIndication s:Chronic pain of both knees Take 1 Tablet (50 mg) by mouth every 8 hours as needed for Pain. 84 Tablet 025 Active aspirin (ECOTRIN EC) 81 mg Tablet, Delayed Release (E.C.) Take 81 mg by mouth daily. Active polyethylene glycol (MIRALAX) 17 gram Powder in Packet Take 17 Grams by mouth 1 time daily as needed for Constipation. Active scopolamine (TRANSDERM-SCOP) 1 mg/72 hr patch Apply 1 Patch to skin as directed Q72H. Active HYDROmorphone (DILAUDID) 4 mg tabletIndication s:Status post surgical manipulation of knee joint Take 1 Tablet (4 mg) by mouth every 4 hours as needed for Pain. Max Daily Amount: 24 mg 42 Tablet 01/31/20 11:13 AM CDT 025 Active terazosin (HYTRIN) 10 mg capsuleIndicatio ns:Benign prostatic hyperplasia with lower urinary tract symptoms, symptom details unspecified Take 1 capsule by mouth twice daily 90 Capsule 1 025 Active lisinopriL (PRINIVIL) 40 mg tabletIndication s:Primary hypertension Take 1 Tablet (40 mg) by mouth daily. 100 Tablet 3 025 Active lisinopriL (PRINIVIL) 40 mg tabletIndication s:Primary hypertension Take 1 Tablet (40 mg) by mouth daily. 100 Tablet 1 025 2024 Discontinued(R eorder) terazosin (HYTRIN) 10 mg capsuleIndicatio ns:Benign prostatic hyperplasia with lower urinary tract symptoms, symptom details unspecified Take 1 Capsule (10 mg) by mouth 2 times daily. 60 Capsule 1 025 2024 Discontinued lisinopriL (PRINIVIL) 40 mg tabletIndication s:Primary hypertension Take 1 Tablet (40 mg) by mouth daily. 100 Tablet 1 025 2024 Discontinued Active Problems Problem Noted Date Diagnosed Date Status post surgical manipulation of knee joint - 01/30/2025 01/29/2025 Class 1 obesity in adult wit h BMI: 30.38 kg/m 12/11/2024 Status post total left knee replacement - 12/11/1912/03/2024 Preoperative general physical examination 2024 Anemia 12/03/2024 GERD without esophagitis 12/03/2024 Kidney stones 12/03/2024 Irritable bowel syndrome with constipation 12/03 Benign prostatic hyperplasia with lower urinary tract symptoms 12/03/2024 Anxiety 12/03/2024 Overweight with body mass index (BMI) 25.0-29.9 10/29/2024 Peripheral edema 08/29/2023 Parkinson's disease with dys kinesia without fluctuating manifestations 05/16/2016 History of basal cell carcinoma 07/15/2014 Left shoulder pain 12/17/2013 Special screening for malignant neoplasms, colon 07/17/2012 Elevated prostate specific antigen (PSA) 012 Renal cyst 06/16/2011 Primary hypertension 06/23/2009 Type 2 diabetes mellitus wit hout complication, without long-term current use of insulin 01/07/2009 Resolved Problems Problem Noted Date Diagnosed Date Resolved Date Chronic pain of right knee 10/29/2024 0 12/09/2024 Epigastric pain 07/22/2014 10/05/2023 Tear of left rotator cuff 12/17/2013 Diverticulosis 06/16/2011 01/04/2024 Encounters Date Type Department Care Team Description 04/24/[address] [address] Benja David MD Blood Pressure Monitoring 04/16/[address] [address] Benja David MD Primary hypertension 04/08/2025 External Device Data ST[facility] ABSTRACTION Provider, Abstract 04/04/[address] [address] Benja David MD Benign prostatic hyperplasia with lower urinary tract symptoms, symptom details unspecified 03/25/2025 External Device Data ST[facility] ABSTRACTION Provider, Abstract 03/25/2025 External Device Data Initial Department [address] [place] [address] Dr ROBLERO: [place] [address] Jose Luis Carrington Md 03/21/2025 External Device Data Initial Department [address] [place] [address] Dr ROBLERO: [place] [address] Jose Luis Emergency[facility] 03/11/2025 External Device Data ST[facility] ABSTRACTION Provider, Abstract 02/19/2025 External Device Data ST[facility] ABSTRACTION Provider, Abstract 02/18/2025 External Device Data ST[facility] ABSTRACTION Provider, Abstract 02/17/2025 9:00 AM CDT Office Visit [facility] - Orthopedic [address] [phone] Lashay Page, MARIALUISA Status post surgical manipulation of knee joint - 01/30/2025 (Primary Dx) 02/17/2025 8:20 AM CDT Ancillary Procedure [facility] [address] [place] [address] Andre Freeman MD Status post total left knee replacement 01/30/2025 10:26 AM CDT - 01/30/2025 11:59 PM CDT Hospital Encounter [facility] OP Therapy [facility] [address] [place] [address] Andre Freeman MD Coalson, Mark A, Physical Therapist Discharge Disposition: Home or Self Care 01/30/2025 7:18 AM CDT - 01/30/2025 7:34 AM CDT Surgery [facility] Operating Room [address] [place] [address] Andre Freeman MD MANIPULATION UNDER ANESTHESIA 01/30/2025 7:10 AM CDT Anesthesia Event [facility] Operating Room [address] [place] [phone] Greg Marroquin MD Shockley, Carson S (Student), RN 01/30/2025 5:18 AM CDT - 01/30/2025 10:17 AM CDT Hospital Encounter [facility] Pre Post [address] [place] [address] Andre Freeman MD Status post surgical manipulation of knee joint Discharge Disposition: Home or Self Care 01/30/2025 Orders Only [place] [id number] [place] [address] Andre Freeman MD Status post total left knee replacement (Primary Dx) 01/27/2025 Travel 01/27/[address] [phone] Benja David MD Benign prostatic hyperplasia with lower urinary tract symptoms, symptom details unspecified (Primary Dx) 01/26/[address] [phone] Benja David MD Chronic pain of both knees 01/24/[address] [address] Benja David MD Benign prostatic hyperplasia with lower urinary tract symptoms, symptom details unspecified from Last 3 Months Immunizations Immunization Administration Dates Next Due (PFIZER GALE)(12 YR UP PRIMA RY SERIES) COVID-19 VACCINE - EMERGENCY USE AUTHORIZATION, MRNA, GALE(PF) 30 MCG/0.3 ML IM SUSP 11/12/2021 (PFIZER)(12 YR UP) COVID-19 VACCINE - EMERGENCY USE AUTHORIZATION, MRNA, [id number](PF) 30 MCG/0.3 ML IM SUSP 05/07/2021 (PNEUMOVAX 23)(50 YRS UP) PN EUMOCOCCAL POLYSACCHARIDE (PPV23) 0.5 ML, IM 05/07/2021,06/25/2013 (PREVNAR 13)(6 WKS UP) PNEUM OCOCCAL CONJUGATE (PCV13) 0.5 ML, IM 05/14/2019 (Pfizer Bivalent)(12 Yr Up) COVID-19 Vaccine - Emergency Use Authorization, MRNA, Lnp-S(Pf) 30 Mcg/0.3 Ml Susp 05/25/2022 (SPIKEVAX 2024-)(12YR UP) COVID-19 VACCINE, MRNA (PF)50 MCG/0.5 ML, IM SYRINGE 04/30/2024,05/16/2023 Adacel Vaccine > 7 Yo IM 07/18/2019,04/28/2016 INFLUENZA VACCINE HIGH DOSE QUADRIVALENT 65 YR UP PF IM 05/07/2021 INFLUENZA VACCINE QUADRIVALE NT ADJ 65 YR UP PF IM 05/25/2022 Influenza Seasonal Unspecifi ed Formulation IM 04/21/2024,06/07/2023 Influenza Vaccine Split 3+ Yrs IM 06/25/2013,09/2009,08/10/2009 Influenza Vaccine Split 3+ Yrs PF IM 07/16/2012 Family History Medical History Relation Name Comments Colon Cancer Neg Hx Social History Tobacco Use Types Packs/Day Years Used Date Smoking Tobacco: Never Smokeless Tobacco: Never Tobacco Cessation:Counseling Given: Not Answered Alcohol Use Standard Drinks/Week Comments No 0 [...] on file Legal 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 Gender Identity Not on file Sexual Orientation Not on file Last Filed Vital Signs Vital Sign Reading Time Taken Comments Blood Pressure 164/84 02/17/2025 8:37 AM CDT Pulse 62 01/30/2025 10:07 AM CDT Temperature 37.1 C (98.8 F) 01/30/2025 8:25 AM CDT Respiratory Rate 14 01/30/2025 10:0 0 AM CDT Oxygen Saturation 95% 01/30/2025 10: 07 AM CDT Inhaled Oxygen Concentration - - Weight 102.1 kg (225 lb) 02/17/2025 8:3 7 AM CDT Pt Recorded; unable to bear weight Height 188 cm (6' 2 ) 02/17/2025 8:37 AM CDT Body Mass Index 28.89 02/17/2025 8:37 AM CDT Plan of Treatment Upcoming Encounters Date Type Department Care Team (Late st Contact Info) Description 12/10/2025 10:20 AM CDT Office Visit [facility] - [facility] [address] [place] [phone] Kulwinder Leos PA-C [address] [place] [phone] Health Maintenance Due Date Last Done Comments ZOSTER VACCINE (1 of 2) 1996 RSV VACCINE (60+ or ) (1 - 1-dose 75+ series) 2021 DIABETES ANNUAL FOOT EXAM 08/25/2024 08/25/2023 INFLUENZA VACCINE (#1) 2025 4, 06/07/2023, 05/25/2022, Additional history exists COVID-19 Vaccine (2023-2 5 season) 2025 04/30/2024, 05/16/2023, 05/25/2022, Additional history exists DIABETES MICROALBUMIN ANNUAL SCREEN 04/09/2025 04/09/2024, 01/04/2024 DIABETES HBA1C Q 6 MONTHS 05/01/20252024, 04/09/2024, 01/04/2024, Additional history exists DIABETES ANNUAL RETINAL EXAM 05/09/202510/2023, 05/09/2024, 10/11/2022, Additional history exists Traditional Medicare (ACO) A nnual Wellness Visit 07/16/2025 07/15/2024 DIABETES: A1C (Auto Order) 10/29/202510/29, 04/09/2024, 01/04/2024, Additional history exists LDL CHOLESTEROL ANNUAL 10/29/2025 , 08/11/2021, 11/04/2020 DTAP/TDAP/TD VACCINES (3 - T d or Tdap) 07/18/2029 07/18/2019, 04/28/2016 COLORECTAL SCREENING Discontinued 07/18/2012, 07/18/2012, 07/17/2012 PNEUMOCOCCAL VACCINE 50+ YEARS Completed 1 , 05/14/2019, 06/25/2013 Colorectal Cancer Screening Discontinued FIT/FOBT Q 1 year Discontinued 04/22/2024 FIT-DNA Q 3 years Discontinued Flex Sig/CT Colonography Q 5 years Discontinued Medical Devices Implanted Type Area Water Hauler Device Identifier Shelf Expiration Date Model / Serial / Lot Valier Sut Crgiorgicrw Biocmpst 5.5mm [id number] - [id number] Implanted:Qty: 1 on 08/15/2014 Valier Left: Shoulder [employer] 04/06/2016 [id number] / / [id number] Bsplt Tib Attune Fix Brng Sz 8 Implanted:Qty: 1 on 12/10/2024 by Andre Freeman MD at [facility] Left: Knee [id number] 12/04/2032 [id number] / / [id number] Comp Fem Attune Sz8 Implanted:Qty: 1 on 12/10/2024 by Andre Freeman MD at [facility] Left: Knee [id number] 10/04/2034 [id number] / / [id number] Insert Implanted:Qty: 1 on 12/10/2024 by Andre Freeman MD at [facility] Left: Knee 04/06/2032 [id number] / / [id number] Procedures Procedure Name Priority Date/Time Associated Diagnosis Comments XR KNEE 3 VW LEFT Routine 02/17/2025 8:3 2 AM CDT Status post total left knee replacement TELEMETRY REPORT 01/31/2025 2:26 AM CDT XR KNEE 1 OR 2 VW LEFT Routine 01/30/2025 7:41 AM CDT POC GLUCOSE Routine 01/30/2025 7:33 AM CDT TX MANIPULATION KNEE JOINT UNDER GENERAL ANESTHESIA 01/30/2025 7:18 AM CDT Arthrofibrosis of knee joint, left POC SODIUM, POTASSIUM, AND H&H Routine 01/30/2025 6:05 AM CDT POC GLUCOSE Routine 01/30/2025 6:02 AM CDT LIPID PANEL Routine 10/29/2024 9:21 AM CDT Type 2 diabetes mellitus without complication, without long-term current use of insulin ([facility]/HCC) Overweight with body mass index (BMI) 25.0-29.9 HEMOGLOBIN A1C Routine 10/29/2024 9:21 AM CDT Type 2 diabetes mellitus without complication, without long-term current use of insulin ([facility]) TX BILAT DIL RETINAL EXAM Routine 05/09/2024 1:54 PM CDT OCCULT BLOOD IMMUNOASSAY, COLORECTAL SCREEN Routine 04/22/2024 12:00 AM CDT Screening for colon cancer MICROALBUMIN/CREATINI NE RATIO, RANDOM UR Routine 04/09/2024 10:58 AM CDT Type 2 diabetes mellitus without complication, without long-term current use of insulin ([facility]) ENDOSCOPY, COLON, SCREENING Routine 07/18/2012 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 Andre Freeman MD DIAGNOSTIC IMAGING ORDERABLES Final Result * TELEMETRY REPORT (01/31/2025 2:26 AM CDT) Provider Scanning ECG ORDERABLES Final Result * XR KNEE 1 OR 2 VW LEFT (01/30/2025 7:41 AM CDT) Anatomical Region Laterality Modality Lower Extremity Computed Radiogr aphy 01/30/2025 7:41 AM CDT Impressions 01/30/2025 8:12 AM CDT IMPRESSION: See below. Exam: XR KNEE 1 OR 2 VW LEFT Date/Time of Exam: 01/30/2025 7:41 AM Reason For Exam: Other - Please see comments. Diagnosis: Status post surgical manipulation of knee joint. Findings: There is a knee joint arthroplasty which appears normally aligned. No fracture or hardware complication identified. Narrative Procedure Note Fran Ramos MD - 01/30/2025 IMPRESSION: See below. Exam: XR KNEE 1 OR 2 VW LEFT Date/Time of Exam: 01/30/2025 7:41 AM Reason For Exam: Other - Please see comments. Diagnosis: Status post surgical manipulation of knee joint. Findings: There is a knee joint arthroplasty which appears normally aligned. No fracture or hardware complication identified. Kulwinder Leos PA-C DIAGNOSTIC IMAGING ORDERABLES Final Result * (ABNORMAL) POC GLUCOSE (01/30/2025 7:33 AM CDT) Only the most recent of2 resultswithin the time period is included. GLUCOSE POC 128(H) 74 - 99 mg/dL 01/30/2025 7:33 AM CDT [facility] SPECIMEN SOURCE, GLUCOSE POC Whole Blood 01/30/2025 7:33 AM CDT [facility] Blood, whole 01/30/2025 7:33 AM CDT 01/30/2025 7:41 AM CDT Andre Freeman MD POINT OF CARE TESTING Final Re sult [id number] [place] [address] * (ABNORMAL) POC SODIUM, POTASSIUM, AND H&H (01/30/2025 6:05 AM CDT) SODIUM POC 138 138 - 146 mmol/L 01/30/2025 6:05 AM CDT [facility] POTASSIUM POC 3.8 3.5 - 4.9 mmol/L 01/30/2025 6:05 AM CDT [facility] HEMOGLOBIN POC 10.9 7.0 - 20.0 g/dL 01/30/2025 6:05 AM CDT [facility] HEMATOCRIT POC 32(L) 38 - 51 % 01/30/2025 6:05 AM CDT [facility] Blood 01/30/2025 6:05 AM CDT 01/30/2025 6:08 AM CDT Narrative [facility] - 01/30/2025 6:05 AM CDT Point of Care Testing methodology intended for rapid screening purposes only. Actual hemoglobin results may vary up to +/- 3 g/dL. Clinical correlation required. us Andre Freeman MD POINT OF CARE TESTING Final Re sult Performing Organization Address City/[facility]/ZIP Co de Phone Number [facility] CLIA #[id number] [address] [address] [address] * (ABNORMAL) HEMOGLOBIN A1C (10/29/2024 9:21 AM CDT) HEMOGLOBIN A1C 6.3(H) <5.7 % of total Hgb [facility] Comment: For someone without known diabetes, a hemoglobin A1c value between 5.7% and 6.4% is consistent with prediabetes and should be confirmed with a follow-up test. For someone with known diabetes, a value <7% indicates that their diabetes is well controlled. A1c targets should be individualized based on duration of diabetes, age, comorbid conditions, and other considerations. This assay result is consistent with an increased risk of diabetes. Currently, no consensus exists regarding use of hemoglobin A1c for diagnosis of diabetes for children. ESTIMATED AVERAGE GLUCOSE (MG/DL) 134 mg/dL [facility] ESTIMATED AVERAGE GLUCOSE (MMOL/L) 7.4 mmol/L [facility] Comment: Test Performed at: [facility] [address] [place] [address] Naldo Nolasco MD Blood 10/29/2024 9:21 AM CDT 10/30/2024 4:48 AM CDT us Benja David MD CHEMISTRY ORDERABLES Final Resul t Performing Organization Address City/[facility]/ZIP Co de Phone Number [facility] [phone] [facility] [address] [place] [address] * (ABNORMAL) LIPID PANEL (10/29/2024 9:21 AM CDT) CHOLESTEROL 114 <200 mg/dL [facility] HDL 37(L) > OR = 40 mg/dL [facility] TRIGLYCERIDE 96 <150 mg/dL [facility] LDL CALCULATED 59 mg/dL (calc) [facility] Comment: Reference range: <100 Desirable range <100 mg/dL for primary prevention; <70 mg/dL for patients with CHD or diabetic patients with > or = 2 CHD risk factors. LDL-C is now calculated using the Bello-Millan calculation, which is a validated novel method providing better accuracy than the Friedewald equation in the estimation of LDL-C. Bello SS et al. CHRISTINE. 2013;310(19): 6963-1741 (http://education.femeninas/faq/JDA706) CHOL/HDL RATIO 3.1 <5.0 (calc) [facility] NON-HDL CHOLESTEROL 77 <130 mg/dL (calc) [facility] Comment: For patients with diabetes plus 1 major ASCVD risk factor, treating to a non-HDL-C goal of <100 mg/dL (LDL-C of <70 mg/dL) is considered a therapeutic option. Test Performed at: [facility] [address] [place] [address] Naldo Nolasco MD Blood 10/29/2024 9:21 AM CDT 10/30/2024 4:48 AM CDT us Benja David MD CHEMISTRY ORDERABLES Final Resul t [facility] [phone] [facility] [address] [place] [address] * [place] BILAT DIL RETINAL EXAM (05/09/2024 1:54 PM CDT) us Antonino Dash OD [place] - MEDICAL SERVICES Final R esult [facility] CLIA# [id number] [address] [place] [address] * OCCULT BLOOD IMMUNOASSAY, COLORECTAL SCREEN (04/22/2024 12:00 AM CDT) FECAL GLOBIN SEE NOTE [facility] Comment: FECAL GLOBIN BY IMMUNOCHEMISTRY Micro Number: [id number] Test Status: Final Specimen Source: Stool Specimen Quality: Adequate Fecal Globin: Not Detected Test Performed at: [facility] [address] [place] [address] Naldo Nolasco MD Stool STOOL SPECIMEN / Unknown 04/22/2024 04/30/2024 11:28 AM CDT us Benja David MD BODY FLUIDS AND STOOLS Final Res ult Performing Organization Address City/State/[facility] Phone Number [facility] [phone] [facility] [address] [place] [address] * MICROALBUMIN/CREATININE RATIO, RANDOM UR (04/09/2024 10:58 AM CDT) Creatinine, Urine 159 20 - 320 mg/dL [facility] MICROALBUMIN, URINE 0.8 See Note: mg/dL [facility] Comment: Reference Range: Reference Range Not established MICROALBUMIN/CREAT RATIO, UR 5 <30 mg/g creat [facility] Comment: The ADA defines abnormalities in albumin excretion as follows: Albuminuria Category Result (mg/g creatinine) Normal to Mildly increased <30 Moderately increased 30-299 Severely increased > OR = 300 The ADA recommends that at least two of three specimens collected within a 3-6 month period be abnormal before considering a patient to be within a diagnostic category. 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 ENDOSCOPY, COLON, MEDICARE SCREENING (WELLNESS) [[id number]] ordered byat 06/20/12 1106 [facility] ENDOSCOPY [place] NAME [facility] # [id number] 1945 AGE 67Y PHYSICIAN Kolton Tirado MD [...] colonoscopy in 10 years. Kolton Tirado MD medq D: [id number] V: [id number] cc:Antonio Vu MD Basil Alatorre DO GI PROCEDURE ORDERABLES Final Result Performing Organization Address City/State/[facility] Co de Phone Number [facility] from Last 3 Months or Most Recently Relevant to Health Maintenance Insurance MEDICARE PART A AND B [employer] INS SUPP RX [employer] RX Member Subscriber Plan / Payer (Ef fective 2024-Present) Name:John Amezcua Relation to Subscriber:Self Name:John Amezcua Payer ID:Not on file Group ID:[id number] Type:RX Medicare Part D Address: [address] [address] Advance Directives For more information, please contact: [phone] Documents on File Type Date Recorded Patient Clerical Order Filler Expl anation Advance Directive POA 12/13/2024 12:56 PM A dvance Directive POA * Full Code (Latest Code Status on File) Date Activated Date Inactivated Comments 01/30/2025 6:43 AM 01/30/2025 1:25 PM * Full Code Date Activated Date Inactivated Comments 01/30/2025 5:42 AM 01/30/2025 6:43 AM * Full Code Date Activated Date Inactivated Comments 12/11/2024 5:49 PM 12/26/2024 6:08 PM * Full Code Date Activated Date Inactivated Comments 12/10/2024 9:29 AM 12/11/2024 5:10 PM Care Teams Track Laminating Machine Tender Relationship Specialty Start Date End Date Benja David MD [address] [place] [id number] PCP - General Family Practice 08/25/23
--- NOTE | 2025-04-26 09:29 | W.ED.ABDPA2 ---
HPI - Abdominal Pain General: Chief Complaint: Abdominal Pain Stated Complaint: abd pain Time Seen by Provider: 04/26/25 09:24 Source: patient and EMS Mode of arrival: EMS Limitations: no limitations History of Present Illness: 79-year-old male is from residential has been having severe abdominal pain this morning. Patient states his pain is currently a 9 out of 10 he has had nausea denies any vomiting patient denies any worse or improving factors. Denies any radiation of his pain denies any chest pain. Associated Symptoms: Reports nausea; Denies chills and fever(s) Related Data Home Medications ?Medication ?Instructions ?Recorded ?Confirmed acetaminophen 500 mg tablet 1,000 mg PO Q8H PRN Pain 04/26/25 04/26/25 aripiprazole 1 mg/mL oral solution 1 mg PO DAILY 04/26/25 04/26/25 aspirin 81 mg tablet,delayed 81 mg PO Q12H fever/pain 04/26/25 04/26/25 release carbidopa 25 mg tablet See Rx Instructions .Route .COMPLEX 04/26/25 04/26/25 carbidopa 25 mg-levodopa 100 mg See Rx Instructions .Route .COMPLEX 04/26/25 04/26/25 tablet carbidopa ER 50 mg-levodopa 200 mg 1 tab PO BEDTIME 04/26/25 04/26/25 tablet,extended release carvedilol 6.25 mg tablet 6.25 mg PO BID 04/26/25 04/26/25 finasteride 5 mg tablet 5 mg PO QAM 04/26/25 04/26/25 fluticasone propionate 50 2 spray intranasal DAILY 04/26/25 04/26/25 mcg/actuation nasal spray,suspension furosemide 40 mg tablet 40 mg PO DAILY 04/26/25 04/26/25 lidocaine 4 % topical patch See Rx Instructions .Route 04/26/25 04/26/25 .COMPLEX Pain magnesium hydroxide 400 mg/5 mL 30 ml PO DAILY PRN Constipation 04/26/25 04/26/25 oral suspension (Milk of Magnesia) nystatin 100,000 unit/gram topical See Rx Instructions .Route .COMPLEX 04/26/25 04/26/25 powder ondansetron HCl 4 mg tablet 40 mg PO Q8H PRN nausea/emesis 04/26/25 04/26/25 potassium chloride 20 mEq 20 meq PO DAILY 04/26/25 04/26/25 tablet,extended release(part/cryst) ropinirole 1 mg tablet 1 mg PO TID 04/26/25 04/26/25 terazosin 10 mg capsule 10 mg PO BID 04/26/25 04/26/25 tizanidine 4 mg capsule 4 mg PO Q6H PRN Muscle Spasm 04/26/25 04/26/25 Previous Rx's ?Medication ?Instructions ?Recorded dicyclomine 20 mg tablet 20 mg PO TID PRN abdominal pain 04/26/25 #20 tabs hydrocodone 5 mg-acetaminophen 325 1 tab PO Q6H PRN pain #14 tabs 04/26/25 mg tablet ondansetron 4 mg disintegrating 4 mg PO Q6H PRN nausea and 04/26/25 tablet vomiting #14 tabs Allergies Allergy/AdvReac Type Severity Reaction Status Date / Time No Known Allergies Allergy Verified 12/07/21 10:19 Review of Systems Const: Denies: fever(s) or chills Resp: Denies: dyspnea GI: Reports: abdominal pain and nausea Musc: Denies: back pain Skin/Breast: Denies: rash [facility] PFSH: Social History Smoking and tobacco/nicotine status: never used tobacco/nicotine Physical Exam Const: COMMON NORMALS: patient oriented x3 GENERAL APPEARANCE: in distress HENMT: COMMON NORMALS: normocephalic and atraumatic HEAD & SCALP: normocephalic and atraumatic Neck/C-Spine: COMMON NORMALS: full ROM and supple Chest: COMMONS NORMALS: normal inspection of the chest Resp: COMMON NORMALS: normal respiratory effort, No retractions, No use of accessory muscles and clear to auscultation bilaterally AUSCULTATION: clear to auscultation bilaterally Cardio: COMMON NORMALS: regular rate, regular rhythm and No murmurs present (Cardio) RATE: regular rate RHYTHM: regular rhythm GI: COMMON NORMALS: Normal to inspection, nondistended, normoactive bowel sounds present and no masses PALPATION: Yes Firmness to palpation present (GI) Extremity: COMMON NORMALS: normal to inspection and full ROM Neuro: COMMON NORMALS: patient oriented x3, moves all extremities and no focal motor deficits Psych: COMMON NORMALS: mental status grossly normal, Normal thought process present and cooperative THOUGHT PROCESS: Normal thought process present Skin: COMMON NORMALS: no rashes or lesions noted and no wounds GENERAL SKIN EXAM: no rashes or lesions noted Course Vital Signs: Vital signs: Vital Signs Temperature 97.8 F 04/26/25 09:28 Pulse Rate 79 04/26/25 09:28 Respiratory Rate 18 04/26/25 09:28 Blood Pressure 190/88 04/26/25 11:53 Pulse Oximetry 92 04/26/25 09:35 Oxygen Delivery Me thod Room Air 04/26/25 09:35 MDM - Abdominal Pain Medical Decision Making Patient is here with abdominal pain patient CT here is normal blood works normal he has no signs of acute surgical abdomen his exam at discharge is benign he feels much improved will prescribe him Bentyl family states he has abdominal cramps in the past patient stable for discharge follow-up PCP return if worsening. Medical Records I reviewed the patient's medical records. Lab Data I reviewed the patient's lab results. 04/26/25 09:15 04/26/25 09:15 Labs/Radiology: Radiology Impressions Abdomen/Pelvis CT 04/26/25 09:26 IMPRESSION: 1. Small bilateral pleural effusions with compressive atelectasis. 2. Moderate stool burden. 3. Mild edema seen in lower mesentery and presacral space nonspecific. COMMENTS: Consistent with the [employer]'s Incidental Findings Committee white paper (J Am Sabrina Radiol 2018): Any incidental renal lesion less than 1 cm or classified as too small to characterize, or any incidental cystic renal lesion characterized as simple-appearing, is likely benign. No follow-up imaging is recommended for these lesions per consensus recommendations based on imaging criteria. Laboratory Results WBC 6.86 10^3/uL (3.29-11.43) 04/26/25 09:15 RBC 4.01 10^6/uL (3.85-5.65) 04/26/25 09:15 Hgb 11.80 g/dL (11.27-16.99) 04/26/25 09:15 Hct 36.8 % (37-53) L 04/26/25 09:15 MCV 91.8 fl (82-101) 04/26/25 09:15 MCH 29.4 pg (27-33) 04/26/25 09:15 MCHC 32.1 g/dL (30-55) 04/26/25 09:15 RDW 14.0 % (12.1-15.1) 04/26/25 09:15 Plt Count 141 10^3/cmm (157-399) L 04/26/25 09:15 MPV 10.6 fL (7.4-10.4) H 04/26/25 09:15 Neut % (Auto) 71.7 % 04/26/25 09:15 Lymph % (Auto) 18.7 % 04/26/25 09:15 [place] % (Auto) 6.7 % 04/26/25 09:15 Eos % (Auto) 1.9 % 04/26/25 09:15 Baso % (Auto) 0.6 % 04/26/25 09:15 Neut # (Auto) 4.92 10^3/uL (1.8-7.7) 04/26/25 09:15 Lymph # (Auto) 1.3 10^3/uL (0.8-4.8) 04/26/25 09:15 [place] # (Auto) 0.5 10^3/uL (0.2-0.9) 04/26/25 09:15 Eos # (Auto) 0.1 10^3/uL (0.0-0.8) 04/26/25 09:15 Baso # (Auto) 0.0 10^3/uL (0.0-0.1) 04/26/25 09:15 Nucleated RBC % (auto) 0 % 04/26/25 09:15 Nucleated RBCs # 0.0 /100WBC 04/26/25 09:15 Sodium 139 mmol/L (136-145) 04/26/25 09:15 Potassium 3.5 mmol/L (3.5-5.1) 04/26/25 09:15 Chloride 100 mmol/L (98-107) 04/26/25 09:15 Carbon Dioxide 27 mmol/L (22-29) 04/26/25 09:15 Anion Gap 15.5 (5-19) 04/26/25 09:15 BUN 11 mg/dL (8-23) 04/26/25 09:15 Creatinine 0.6 mg/dL (0.7-1.2) L 04/26/25 09:15 GFR Calculation Not Reportable 04/26/25 09:15 Glucose 257 mg/dL (65-115) H 04/26/25 09:15 Calculated Osmolality 296 mOsm/kg (285-295) H 04/26/25 09:15 Lactic Acid 1.8 mmol/L (0.5-2.2) 04/26/25 09:15 Calcium 9.0 mg/dL (8.5-10.5) 04/26/25 09:15 Total Bilirubin 1.2 mg/dL (0.15-1.2) 04/26/25 09:15 AST 9 U/L (0-40) 04/26/25 09:15 ALT < 5 U/L (0-41) 04/26/25 09:15 Alkaline Phosphatase 135 U/L (40-130) H 04/26/25 09:15 Total Protein 6.4 g/dL (6.6-8.7) L 04/26/25 09:15 Albumin 3.6 g/dL (3.5-5.2) 04/26/25 09:15 Globulin 2.8 g/dL (1.3-4.6) 04/26/25 09:15 Lipase 16 U/L (13-60) 04/26/25 09:15 Urine Color Yellow (Yellow) 04/26/25 10:11 Urine Appearance Clear (CLEAR) 04/26/25 10:11 Urine pH 7.0 (5-7) 04/26/25 10:11 Ur Specific [place] 1.039 (1.005-1.030) H 04/26/25 10:11 Urine Protein Trace (Negative) A 04/26/25 10:11 Urine Glucose (UA) Trace (Normal) H 04/26/25 10:11 Urine Ketones Negative (Negative) 04/26/25 10:11 Urine Blood Negative (Negative) 04/26/25 10:11 Urine Nitrate Negative (Negative) 04/26/25 10:11 Urine Bilirubin Negative (Negative) 04/26/25 10:11 Urine Urobilinogen 1.0 mg/dL (Negative) 04/26/25 10:11 Ur Leukocyte Esterase Negative (Negative) 04/26/25 10:11 Urine RBC 3-5 /hpf (0-2) 04/26/25 10:11 Urine WBC 0-5 /hpf (0-5) 04/26/25 10:11 Ur Squamous Epith Cells 0-5 /hpf (0-5) 04/26/25 10:11 Amorphous Sediment Not Reportable 04/26/25 10:11 Urine Bacteria None seen /hpf (NONE) 04/26/25 10:11 Hyaline Casts 0-4 /lpf H 04/26/25 10:11 All radiology interpretation(s) finalized by discharge Discharge Plan Discharge Patient Disposition: Home Clinical Impression: Abdominal pain Condition: Stable Prescriptions: New hydrocodone-acetaminophen 5-325 mg tablet 1 tab PO Q6H PRN (Reason: pain) Qty: 14 0RF ondansetron 4 mg tablet,disintegrating 4 mg PO Q6H PRN (Reason: nausea and vomiting) Qty: 14 0RF dicyclomine 20 mg tablet 20 mg PO TID PRN (Reason: abdominal pain) Qty: 20 0RF No Action furosemide 40 mg tablet 40 mg PO DAILY carvedilol 6.25 mg tablet 6.25 mg PO BID ropinirole 1 mg tablet 1 mg PO TID lidocaine 4 % Adhesive Patch,Medicated See Rx Instructions .ROUTE .COMPLEX Rx Instructions: Apply 1 patch topically to right knee daily as needed for pain. ondansetron HCl 4 mg tablet 40 mg PO Q8H PRN (Reason: nausea/emesis) carbidopa-levodopa 50-200 mg tablet extended release 1 tab PO BEDTIME aspirin [Aspir-81] 81 mg Tablet,Delayed Release (Dr/Ec) 81 mg PO Q12H acetaminophen 500 mg Tablet 1,000 mg PO Q8H PRN (Reason: Pain) carbidopa 25 mg tablet See Rx Instructions .ROUTE .COMPLEX Rx Instructions: TAKE 1 TABLET BY MOUTH IN THE MORNING TAKE 1 TABLET BY MOUTH AT 7 AM WITH FIRST DOSE OF CARBIDOPA/LEVODOPA FOR NAUSEA. potassium chloride 20 mEq tablet,ER particles/crystals 20 meq PO DAILY magnesium hydroxide [Milk of Magnesia] 400 mg/5 mL Suspension 30 ml PO DAILY PRN (Reason: Constipation) nystatin 100,000 unit/gram powder See Rx Instructions .ROUTE .COMPLEX Rx Instructions: TAKE 2 TABLETS BY MOUTH 4 TIMES DAILY FOR 90 DAYS TAKE 2 TABLETS BY MOUTH AT 7 AM, 10:30 AM, 2PM, AND 5:30 PM WITH SINEMET 50/200 CR AT 8 PM. carbidopa-levodopa 25-100 mg tablet See Rx Instructions .ROUTE .COMPLEX Rx Instructions: TAKE 2 TABLETS BY MOUTH 4 TIMES DAILY AT 7 AM, 10:30 AM, 2PM, AND 5:30 PM WITH SINEMET 50/200 CR AT 8 PM. fluticasone propionate 50 mcg/actuation spray,suspension 2 spray INTRANASAL DAILY terazosin 10 mg capsule 10 mg PO BID finasteride 5 mg tablet 5 mg PO QAM aripiprazole [Abilify] 1 mg/mL Solution 1 mg PO DAILY tizanidine 4 mg Capsule 4 mg PO Q6H PRN (Reason: Muscle Spasm) Discharge Orders: Discharge ED (Routine); Ordered 04/26/25 Ordered By: Hi Atwood Referrals: Benja David MD [Referring, Family Practice] - 4-7 days Discharge Diet: Advance as tolerated Discharge Activity: Resume usual activity Patient Instructions: Abdominal Pain (ED), Opioid Safety, Pain Management Print Language: Indian Coding Level of Care Code ED [facility] And Wellness Instructor for Carolin Zelaya
[2025-04-26] MEDS: ondansetron 2 mg/ML SDV 2 mL 4 MG IVP (09:34)
[2025-04-26] MEDS: HYDROmorphone 0.5 MG/0.5 ML INJ IVP (09:34)
[2025-04-26 09:35] VITALS: O2SAT 92
[2025-04-26 09:42] LABS: Hematocrit 36.8 % (37-53); Hemoglobin 11.80 g/dL (11.27-16.99); Mean Corpuscular HGB Conc 32.1 g/dL (30-55); Mean Corpuscular Hemoglobin 29.4 pg (27-33); Mean Corpuscular Volume 91.8 fl (82-101); Nucleated Red Blood Cells % 0 %; Platelet Count 141 10^3/cmm (157-399); Red Blood Count 4.01 10^6/uL (3.85-5.65); White Blood Count 6.86 10^3/uL (3.29-11.43)
[2025-04-26] MEDS: iohexol 350 mg/mL 500 mL Btl (per mL) IV (09:43)
[2025-04-26 10:00] LABS: Alanine Aminotransferase < 5 U/L (0-41); Albumin Level 3.6 g/dL (3.5-5.2); Alkaline Phosphatase 135 U/L (40-130); Anion Gap 15.5 (5-19); Aspartate Amino Transferase 9 U/L (0-40); Blood Urea Nitrogen 11 mg/dL (8-23); Calcium 9.0 mg/dL (8.5-10.5); Carbon Dioxide 27 mmol/L (22-29); Chloride 100 mmol/L (98-107); Creatinine Clr Calc Pharmacy 94.4906; Globulin 2.8 g/dL (1.3-4.6); Glucose 257 mg/dL (65-115); Lipase 16 U/L (13-60); Osmolality Calculated 296 mOsm/kg (285-295); Potassium 3.5 mmol/L (3.5-5.1); Sodium 139 mmol/L (136-145); Total Protein 6.4 g/dL (6.6-8.7)
[2025-04-26 10:01] LABS: Lactic Sepsis W/Reflex 1.8 mmol/L (0.5-2.2)
[2025-04-26 10:18] LABS: Glucose Urine UA Trace (Normal); Nitrate Urine Negative (Negative)
[2025-04-26 10:20] LABS: Add Urine Microscopic? YES
[2025-04-26 10:27] LABS: Specific Gravity, Urine 1.039 (1.005-1.030)
--- NOTE | 2025-04-26 11:34 | PC.PHAR ---
Pt is from [facility]
[2025-04-26 11:53] VITALS: BP 190/88
--- NOTE | 2025-04-26 14:01 | ECG_ITS ---
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 Measurements Intervals [place] Rate: 71 P: 92 IA: 200 QRS: -18 QRSD: 105 T: 38 QT: 378 QTc: 411 Interpretive Statements SINUS RHYTHM NONSPECIFIC ST & T-WAVE ABNORMALITY No previous ECG available for comparison Electronically Signed On 04-26-2025 20:23:18 CDT by Abdulaziz Russo M.D. [email or web address]
[2025-04-26 15:27] VITALS: BP 174/89; PULSE 82; O2SAT 93
[2025-04-26 15:28] VITALS: BP 174/89; PULSE 78; O2SAT 92
== END 2025-04-26 15:31 | disposition home or self-care (01) ==
PROVIDERS: Emergency Provider Emergency Medicine; PCP Internal Medicine
DX: R10.9 Unspecified abdominal pain (principal); Z79.82 Long term (current) use of aspirin
CPT/HCPCS: 36415; 74177; 80053; 81001; 83605; 83690; 85025; 93005; 96374; 96375; 99285; J1171; J2405; J9999

== ENCOUNTER → 2025-05-08 09:31 | Outpatient (BNVA) | payer MEDICARE, OTHER, SELFPAY | PROVIDERS: PCP Internal Medicine; Visit Provider Podiatrist Foot & Ankle Surgery | DX: E11.40 Type 2 diabetes mellitus with diabetic neuropathy, unspecified (principal); L60.3 Nail dystrophy; L60.8 Other nail disorders | CPT/HCPCS: 11721; 99203 ==

== ENCOUNTER → 2025-07-15 10:03 | Outpatient (BNVA) | payer MEDICARE, OTHER, SELFPAY | PROVIDERS: PCP Internal Medicine; Visit Provider Podiatrist Foot & Ankle Surgery | DX: E11.8 Type 2 diabetes mellitus with unspecified complications (principal); L60.3 Nail dystrophy; L60.8 Other nail disorders; E11.40 Type 2 diabetes mellitus with diabetic neuropathy, unspecified | CPT/HCPCS: 11721 ==